=== PATIENT | female | born 1950 | race Hispanic/Latino ===

== ENCOUNTER 2016-09-19 09:11 | Emergency (ER) | payer MEDICARE ==
--- NOTE | 2016-09-19 09:41 | ERRECORD ---
[facility] EMERGENCY RECORD HPI URI (09:33 JLOY) CHIEF COMPLAINT: Patient presents for evaluation of nasal congestion, Patient presents for evaluation of cough, Patient presents for evaluation of Pt with cough and congestion x3 days. Recent URI/sinus infection treated 3-4 weeks ago that resolved but diarrhea from abx has been persistent. HISTORIAN: History provided by patient. LOCATION: No localizing symptoms. TIME COURSE: Gradual onset of symptoms, There has been no change in the patient's symptoms over time, are intermittent. ASSOCIATED WITH: No associated chest pain, No associated chills, No associated fever, No associated headache, No associated neck pain, No associated shortness of breath. EXACERBATED BY: Patient's condition exacerbated by nothing. RELIEVED BY: Patient's condition relieved by Mucinex. ROS (09:34 JLOY) CONSTITUTIONAL: Historian denies chills, denies fever. EYES: Historian denies eye pain, denies eye redness. ENT: Historian reports rhinorrhea, denies sore throat. CARDIOVASCULAR: Historian denies chest pain. RESPIRATORY: Historian reports cough, denies shortness of breath, denies sputum. GI: Historian denies abdominal pain, reports diarrhea, denies nausea, denies vomiting. GENITOURINARY FEMALE: Historian denies dysuria, denies frequency, denies hematuria. MUSCULOSKELETAL: Historian denies neck pain. SKIN: Historian denies rash. NEUROLOGIC: Historian denies headache. PAST MEDICAL HISTORY MEDICAL HISTORY: Tetanus not up to date, Pneumococcal vaccine not up to date, Past medical history includes history of hypertension, which has been treated, Past medical history includes neurological disease, Alzheimer's disease. (09:20 EPIE) FEMALE SURGICAL HISTORY: Surgical history of hysterectomy. (09:20 EPIE) PSYCHIATRIC HISTORY: Notes: DENIES. (09:20 EPIE) SOCIAL HISTORY: Patient denies alcohol use, Patient denies drug use, Patient has no smoking history. (09:20 EPIE) FAMILY HISTORY: No known family hisotry. (09:20 EPIE) NOTES: Nursing records reviewed, Agree with nursing records. (09:35 JLOY) KNOWN ALLERGIES No Known Allergies (Unconfirmed) No Known Drug Allergies (Unconfirmed) NONE (Unconfirmed) &a-1R&a+25V*p+0X*x1268K*c202B*c15G*c2P*p-0X&a-25V&a+1R Name: Flavia Ann : 1950 F65 MedRec: [id number] AcctNum: [id number] Prepared: SunSep 19, 2016 09:45 by Interface Page 1 of 3 pMD [facility] EMERGENCY RECORD CURRENT MEDICATIONS (09:21 EPIE) amLODIPine: TABLET : Strength - 5 mg : ORAL Patient Dose: 5 mg Oral once a day. VITAL SIGNS VITAL SIGNS: Resp: 22 (Non-Labored), Temp: 98.6 (Oral), Pain: 0, Time: 09/19/2016 09:16. (09:16 EPIE) BP: 190/87, Pulse: 55, O2 sat: 98 on Room Air, Time: 09/19/2016 09:19. (09:19 EPIE) PHYSICAL EXAM (09:35 JLOY) CONSTITUTIONAL: Vital signs reviewed, Respiratory rate normal, Patient appears non toxic, Patient appears pain free. EYES: Eye exam included findings of eyelids normal to inspection, Pupils equally round and reactive to light, Conjunctiva normal. ENT: Pharynx exam normal, Uvula exam normal, Tonsil exam normal, Mouth exam normal, mucous membranes moist. NECK: Neck exam included findings of normal range of motion, Trachea midline, no cervical adenopathy. RESPIRATORY CHEST: Respiratory exam included findings of no respiratory distress, Breath sounds clear, No wheezing, No rales, No rhonchi, Chest exam included findings of chest movement symmetrical. CARDIOVASCULAR: Cardiovascular exam included findings of heart rate regular rate and rhythm, Heart sounds normal. ABDOMEN FEMALE: Abdominal exam included findings of abdomen nontender, Bowel sounds normal. NEURO: [place] coma scale 15, Speech normal. SKIN: Skin exam included findings of skin warm, dry, and normal in color, no rash. PSYCHIATRIC: Normal affect. PROBLEM LIST No recorded problems DIAGNOSIS (09:33 JLOY) FINAL: PRIMARY: Acute URI. PRESCRIPTION (09:32 JLOY) Tessalon Perles: CAPSULE (HARD, SOFT, ETC.) : 100 mg : ORAL : Quantity: 100-200 Unit: mg Route: ORAL Schedule: every 8 hours PRN Dispense: 30 May substitute. Refills: No Refills . NOTES: No Refills. DISPOSITION PATIENT: Disposition Type: Discharge, Disposition: *Discharge Home. (09:33 EDWIN) Patient left the department. (09:43 YESICA) Chakraborty: &a-1R&a+25V*p+0X*c2593W*c202B*c15G*c2P*p-0X&a-25V&a+1R Name: Flavia Ann : 1950 65 MedRec: [id number] AcctNum: [id number] Prepared: SunSep 19, 2016 09:45 by Interface Page 2 of 3 pMD [facility] EMERGENCY RECORD YESICA=ADILIA Barnes, Margie PINEDA=MD Reid, Jerry &a-1R&a+25V*p+0X*z8890C*c202B*c15G*c2P*p-0X&a-25V&a+1R Name: Flavia Ann : 1950 F65 MedRec: [id number] AcctNum: [id number] Prepared: SunSep 19, 2016 09:45 by Interface Page 3 of 3 pMD MTDD
--- NOTE | 2016-09-19 09:48 | PICIS ---
[facility] [place] EMERGENCY RECORD TRIAGE (09:19 EPIE) TRIAGE NOTES: Pt reports she was given antibiotic for URI 4 weeks ago. Pt states that it went away and then came back. (09:19 EPIE) PATIENT: NAME: Flavia Ann, AGE: 65, GENDER: female, : Sun1950, TIME OF GREET: SunSep 19, 2016 09:12, PREFERRED LANGUAGE: Greenlandic, ETHNICITY: Not or , ECODE BILLING MAP: [facility], SSN: [id number], Zip Code: [address], PHONE: , , , PERSON ID: [id number], PCP: MD Martin Katherine. (09:19 EPIE) KG WEIGHT: 54.4 (est.). (09:30 EPIE) COMPLAINT: COUGH. (09:19 EPIE) ADMISSION: URGENCY: 4 Non Urgent, ADMISSION SOURCE: Home, TRANSPORT: CAR, BED: TRIAGE. (09:19 EPIE) TRIAGE SCREENING: Patient denies suicidal ideation, Patient denies presence of domestic violence. (09:20 EPIE) TREATMENTS IN PROGRESS: Treatments given Prehospital: none. (09:20 EPIE) PROVIDERS: TRIAGE NURSE: Margie Barnes RN. (09:19 EPIE) VITAL SIGNS: Resp 22, (Non-Labored), Temp 98.6, (Oral), Pain 0, Time 09/19/2016 09:16. (09:16 EPIE) PREVIOUS VISIT ALLERGIES: No Known Allergies. (09:19 EPIE) No Known Allergies. (09:20 EPIE) KNOWN ALLERGIES No Known Allergies (Unconfirmed) No Known Drug Allergies (Unconfirmed) NONE (Unconfirmed) CURRENT MEDICATIONS (09:21 EPIE) amLODIPine: TABLET : Strength - 5 mg : ORAL Patient Dose: 5 mg Oral once a day. VITAL SIGNS VITAL SIGNS: Resp: 22 (Non-Labored), Temp: 98.6 (Oral), Pain: 0, Time: 09/19/2016 09:16. (09:16 EPIE) BP: 190/87, Pulse: 55, O2 sat: 98 on Room Air, Time: 09/19/2016 09:19. (09:19 EPIE) NURSING ASSESSMENT: RESPIRATORY /CHEST (09:25 EPIE) CONSTITUTIONAL: Patient arrives ambulatory, Gait steady, History obtained from patient, Patient appears comfortable, Patient cooperative, Patient alert, Oriented to person, place and time, Skin warm, Skin dry, Skin normal in color, Mucous membranes pink, Mucous membranes moist, Patient is well-groomed, Pt reports she was given antibiotic for URI 4 weeks ago. Pt states that it went away and then came back. PAIN: Patient rates pain as 0 out of 10. &a-1R&a+25V*p+0X*i8263D*c202B*c15G*c2P*p-0X&a-25V&a+1R Name: Flavia Ann : 1950 F65 MedRec: [id number] AcctNum: [id number] Prepared: SunSep 19, 2016 09:51 by Interface Page [address] [facility] [place] EMERGENCY RECORD RESPIRATORY/CHEST: Breath sounds clear, Respiratory assessment findings include respiratory effort easy, Respirations regular, Conversing normally, Neck and chest exam findings include trachea midline, Chest expansion equal, Chest movement symmetrical, no signs of distress, Associated with cough, productive of, unknown sputum color, no associated fever. ENT: Nasal assessment findings include nose normal to inspection, Sinuses normal, Nasal mucosa normal, Discharge. NURSING PROCEDURE: DISCHARGE NOTE (09:41 EPIE) DISCHARGE: Patient discharged to home, ambulating without assistance, family driving, accompanied by other family member, Summary of Care printed/ provided, Discharge instructions given to patient, Discharge instructions given to pt daughter, Simple or moderate discharge teaching performed, Prescriptions given and instructions on side effects given, Name of prescription(s) given: Maral milton person(s) verbalized understanding of discharge instructions and follow-up care. BELONGINGS: Belongings and valuables with patient upon arrival to the Emergency Department include:, Belongings and valuables with patient at time of discharge include:, Belongings remain with patient, Valuables remain with patient. HPI URI (09:33 JLOY) CHIEF COMPLAINT: Patient presents for evaluation of nasal congestion, Patient presents for evaluation of cough, Patient presents for evaluation of Pt with cough and congestion x3 days. Recent URI/sinus infection treated 3-4 weeks ago that resolved but diarrhea from abx has been persistent. HISTORIAN: History provided by patient. LOCATION: No localizing symptoms. TIME COURSE: Gradual onset of symptoms, There has been no change in the patient's symptoms over time, are intermittent. ASSOCIATED WITH: No associated chest pain, No associated chills, No associated fever, No associated headache, No associated neck pain, No associated shortness of breath. EXACERBATED BY: Patient's condition exacerbated by nothing. RELIEVED BY: Patient's condition relieved by Mucinex. ROS (09:34 JLOY) CONSTITUTIONAL: Historian denies chills, denies fever. EYES: Historian denies eye pain, denies eye redness. ENT: Historian reports rhinorrhea, denies sore throat. CARDIOVASCULAR: Historian denies chest pain. RESPIRATORY: Historian reports cough, denies shortness of breath, denies sputum. GI: Historian denies abdominal pain, reports diarrhea, denies nausea, denies vomiting. GENITOURINARY FEMALE: Historian denies dysuria, denies frequency, denies hematuria. &a-1R&a+25V*p+0X*t4735Z*c202B*c15G*c2P*p-0X&a-25V&a+1R Name: Flavia Ann : 1950 F65 MedRec: [id number] AcctNum: [id number] Prepared: SunSep 19, 2016 09:51 by Interface Page [address] [facility] [place] EMERGENCY RECORD MUSCULOSKELETAL: Historian denies neck pain. SKIN: Historian denies rash. NEUROLOGIC: Historian denies headache. PAST MEDICAL HISTORY MEDICAL HISTORY: Tetanus not up to date, Pneumococcal vaccine not up to date, Past medical history includes history of hypertension, which has been treated, Past medical history includes neurological disease, Alzheimer's disease. (09:20 EPIE) FEMALE SURGICAL HISTORY: Surgical history of hysterectomy. (09:20 EPIE) PSYCHIATRIC HISTORY: Notes: DENIES. (09:20 EPIE) SOCIAL HISTORY: Patient denies alcohol use, Patient denies drug use, Patient has no smoking history. (09:20 EPIE) FAMILY HISTORY: No known family hisotry. (09:20 EPIE) NOTES: Nursing records reviewed, Agree with nursing records. (09:35 JLOY) PHYSICAL EXAM (09:35 JLOY) CONSTITUTIONAL: Vital signs reviewed, Respiratory rate normal, Patient appears non toxic, Patient appears pain free. EYES: Eye exam included findings of eyelids normal to inspection, Pupils equally round and reactive to light, Conjunctiva normal. ENT: Pharynx exam normal, Uvula exam normal, Tonsil exam normal, Mouth exam normal, mucous membranes moist. NECK: Neck exam included findings of normal range of motion, Trachea midline, no cervical adenopathy. RESPIRATORY CHEST: Respiratory exam included findings of no respiratory distress, Breath sounds clear, No wheezing, No rales, No rhonchi, Chest exam included findings of chest movement symmetrical. CARDIOVASCULAR: Cardiovascular exam included findings of heart rate regular rate and rhythm, Heart sounds normal. ABDOMEN FEMALE: Abdominal exam included findings of abdomen nontender, Bowel sounds normal. NEURO: [place] coma scale 15, Speech normal. SKIN: Skin exam included findings of skin warm, dry, and normal in color, no rash. PSYCHIATRIC: Normal affect. EVENTS TRANSFER: Triage to Emergency Triage. (SunSep 19, 2016 09:19 EPIE) Emergency Triage to Emergency Room -03. (09:20 EPIE) Removed from Emergency Emergency Room -03. (09:43 EPIE) PROBLEM LIST No recorded problems DIAGNOSIS (09:33 JLOY) FINAL: PRIMARY: Acute URI. &a-1R&a+25V*p+0X*n4193W*c202B*c15G*c2P*p-0X&a-25V&a+1R Name: Flavia Ann Keo : 1950 F65 MedRec: [id number] AcctNum: [id number] Prepared: SunSep 19, 2016 09:51 by Interface Page [address] [facility] [place] EMERGENCY RECORD DISPOSITION PATIENT: Disposition Type: Discharge, Disposition: *Discharge Home. (09:33 JLOY) Patient left the department. (09:43 EPIE) INSTRUCTION (:33 JLOY) DISCHARGE: URI NO ANTIBIOTIC TREATMENT ADULT. FOLLOWUP: MD Mario, Lottie, [facility], [address], [address], [facility] [address], , Follow up with Primary Care Physician as scheduled. SPECIAL: Keep your appointment next Sunday with Dr. Martin. PRESCRIPTION (09:32 [facility]) Clayton Ramirez: CAPSULE (HARD, SOFT, ETC.) : 100 mg : ORAL : Quantity: 100-200 Unit: mg Route: ORAL Schedule: every 8 hours PRN Dispense: 30 May substitute. Refills: No Refills . NOTES: No Refills. IMAGING (09:43 EPIE) *DISCHARGE INSTRUCTIONS RECEIPT: Image captured from scanner. *SUPPLY CHARGE SHEET: Image captured from scanner. ADMIN (09:35 [facility]) DIGITAL SIGNATURE: MD Mathews Joshua. Chakraborty: EPIE=ADILIA Barnes, Margie [facility]=MD Mathews Joshua &a-1R&a+25V*p+0X*m8505L*c202B*c15G*c2P*p-0X&a-25V&a+1R Name: Flavia Ann : 1950 F65 MedRec: [id number] AcctNum: [id number] Prepared: SunSep 19, 2016 09:51 by Interface Page [address] [facility] [place] MEDICATION RECONCILIATION You were seen in the Emergency Department on: SunSep 19, 2016 KNOWN ALLERGIES No Known Allergies (Unconfirmed) No Known Drug Allergies (Unconfirmed) NONE (Unconfirmed) HOME MEDICATIONS CONTINUE PRESCRIBED amLODIPine : TABLET : Strength - 5 mg : ORAL Continue as prescribed Patient had been takin mg Oral once a day. PRESCRIPTIONS (1) &a-1R&a+25V*p+0X*r7171Q*c202B*c15G*c2P*p-0X&a-25V&a+1R Name: Flavia Ann : 1950 F65 MedRec: [id number] AcctNum: [id number] Prepared: SunSep 19, 2016 09:51 by Interface pMD [facility]
== END 2016-09-19 09:41 | disposition home or self-care (01) ==
LOC: NAV ERS 09:11
DX: J06.9 Acute upper respiratory infection, unspecified (principal); I10 Essential (primary) hypertension; Z79.899 Other long term (current) drug therapy
CPT/HCPCS: 99283

== ENCOUNTER 2017-04-24 14:38 | Emergency (ER) | payer MEDICARE ==
[2017-04-24] MEDS ORDERED: Sodium Chloride 0.9% 1,000 ML ONE (15:16)
[2017-04-24] MEDS ORDERED: Ondansetron HCl/PF 4 MG/2 ML Vial ONE (15:16)
[2017-04-24] MEDS ORDERED: Ketorolac Tromethamine 30 MG/ML VIAL ONE (15:16)
[2017-04-24 16:00] LABS: Bilirubin Negative (Negative); Blood, Urine Negative (Negative); Clarity Clear (Clear); Glucose, Urine (Dipstick) Negative (Negative); Leukocyte Negative (Negative); Nitrite Negative (Negative); Protein, Urine (Dipstick) Negative (Neg-Trace); Urobilinogen 0.2 mg/dL (0.2-1.0); pH, Urine 6.5 (5.0-9.0)
[2017-04-24 16:09] LABS: #Basophils 0.1 thou/uL (0.0-0.2); #Eosinphils 0.1 thou/uL (0.0-0.7); #Lymphocytes 2.2 thou/uL (1.20-3.40); #Monocytes 0.8 thou/uL (0.11-0.59); #Neutrophils 4.2 thou/uL (1.40-6.50); %Basophils 1.6 % (0.0-1.0); %Eosinophils 1.2 % (0.0-10.0); %Lymphocytes 29.5 % (21.0-51.0); %Monocytes 10.5 % (0.0-10.0); %Neutrophils 57.3 % (42.0-75.0); Mean Corpuscular Hemoglobin 29.9 pg (27.0-31.0); Mean Platelet Volume 9.1 fL (7.4-10.4); Platelet Count 94 thou/uL (130-400); RBC Distribution Width 12.1 % (11.5-14.5); Red Blood Cell (RBC) Count 4.34 mill/uL (4.20-5.40); White Blood Cell (WBC) Count 7.3 thou/uL (4.8-10.8)
[2017-04-24 16:14] LABS: ALT (SGPT) 33 U/L (8-55); AST (SGOT) 41 U/L (5-34); Albumin 4.1 g/dL (3.4-4.8); Alkaline Phosphatase 125 U/L (40-150); Anion Gap 14 mmol/L (10-20); BUN (Urea Nitrogen) 7 mg/dL (9.8-20.1); Bilirubin, Total 1.2 mg/dL (0.2-1.2); Calc. Creatinine Clearance 0 mL/min (70-130); Calcium 9.2 mg/dL (7.8-10.44); Carbon Dioxide 21 mmol/L (23-31); Chloride 109 mmol/L (98-107); Estimated GFR-MDRD 72; Globulin 2.6 g/dL (2.4-3.5); Glucose 99 mg/dL (80-115); Lipase 46 U/L (8-78); Potassium 3.1 mmol/L (3.5-5.1); Protein, Total 6.7 g/dL (6.0-8.3); Sodium 141 mmol/L (136-145)
[2017-04-24 16:14] LABS: Specific Gravity, Urine 1.004 (1.002-1.036)
--- NOTE | 2017-04-24 22:17 | CT ---
CT ABDOMEN AND PELVIS WITH CONTRAST 04/24/17 HISTORY: Sudden onset back pain. COMPARISON: CT abdomen and pelvis 03/31/16. FINDINGS: The lung bases are clear. Pericardial effusion. Small fat containing umbilical hernia. There are collateral vessels along the falciform ligament. Spleen size is at upper limits of normal. No significant splenic varices. A large splenule is noted along the hilum as well as a small splenu le at the caudal margin of the spleen. Main portal vein is patent as well as the splenic vein. There has been collateral vessels indicating a small gastric varices. Numerous cholelithiasis. The rectum is dilated with gas measuring up to 8 cm. There are numerous diverticula of the cecum, tr ansverse and descending colon without definite acute diverticulitis. The superior mesenteric, celiac and inferior mesenteric arteries are patent. No free intraperitoneal gas or fluid. The liver contour is mildly nodular. Tubular end plate deformity is present at L3. No hydronephrosis. There are indeterminate hypodensity of the inferior pole right kidney measuring g reater than fluid attenuation and measuring 18 mm. This is similar to the comparison examination. IMPRESSION: 1. Cholelithiasis without cholecystitis. 2. Diverticular disease without definite active inflammation. 3. Marked gaseous distention of the rectum measuring up to 8 cm without a distal obstructing ma ss. 4. Hepatic cirrhosis with portal hypertension. POS: [facility]
== END 2017-04-24 21:00 | disposition home or self-care (01) ==
LOC: NAV ERS 14:38
DX: M54.5 Low back pain (principal); I10 Essential (primary) hypertension; G30.9 Alzheimer's disease, unspecified; Z79.899 Other long term (current) drug therapy
CPT/HCPCS: 51701; 74177; 80053; 81003; 83690; 85025; 96361; 96374; 96375; A4353; J1885; J2405; J7050